=== PATIENT | female | born 1950 | race Caucasian/White ===

== ENCOUNTER 2020-05-08 08:35 | Day surgery (SDC) | payer MEDICARE, OTHER ==
[~2020-05-08] VITALS: Ht 157.5 cm; Wt 55.7 kg
[~2020-05-08 08:35] MED LIST: Amlodipine Bes2.5 MG PO; CALCIUM CIT 311 EACH PO; ESTRADIOL0.5 MG PO; LEVSOD100 PO; MULTIVITAMINS1 EAC3 PO
== END 2020-05-08 11:44 | disposition home or self-care (01) ==
LOC: ORSCSDS 08:35
PROVIDERS: Surgery
PROC: 0DJD8ZZ Inspection of Lower Intestinal Tract, Via Natural or Artificial Opening Endoscopic (ICD-10-PCS; principal; 2020-05-08 10:15)
DX: R19.5 Other fecal abnormalities (principal); I10 Essential (primary) hypertension; E03.9 Hypothyroidism, unspecified; R73.03 Prediabetes; F17.210 Nicotine dependence, cigarettes, uncomplicated
CPT/HCPCS: J2704; J7120

== ENCOUNTER 2021-04-10 07:14 | Day surgery (SDC) | payer MEDICARE, OTHER ==
[~2021-04-10] VITALS: Ht 157.5 cm; Wt 53.8 kg
--- NOTE | 2021-04-10 07:45 | NUR ---
04/10/21 0745 Joaquin Randolph CALL LIGHT WITHIN REACH. PLEDGETT AND TETRACAINE DROP PLACED AT 0738
== END 2021-04-10 09:21 | disposition home or self-care (01) ==
LOC: ORSCSDS 07:14
PROVIDERS: Ophthalmology
PROC: 08RJ3JZ Replacement of Right Lens with Synthetic Substitute, Percutaneous Approach (ICD-10-PCS; principal; 2021-04-10 08:30)
DX: H25.11 Age-related nuclear cataract, right eye (principal); I10 Essential (primary) hypertension; E03.9 Hypothyroidism, unspecified; Z79.899 Other long term (current) drug therapy
CPT/HCPCS: J2001; J2250; J3010; J3301; J7040; V2632

== ENCOUNTER 2021-12-18 11:59 | Day surgery (SDC) | payer MEDICARE, OTHER ==
[~2021-12-18] VITALS: Ht 157.5 cm; Wt 53.9 kg
== END 2021-12-18 15:26 | disposition home or self-care (01) ==
LOC: ORSCSDS 11:59
PROVIDERS: Surgery
PROC: 0DBL8ZX Excision of Transverse Colon, Via Natural or Artificial Opening Endoscopic, Diagnostic (ICD-10-PCS; principal; 2021-12-18 14:00)
DX: Z12.11 Encounter for screening for malignant neoplasm of colon (principal); D12.3 Benign neoplasm of transverse colon; K57.30 Diverticulosis of large intestine without perforation or abscess without bleeding; I10 Essential (primary) hypertension; E03.9 Hypothyroidism, unspecified; F43.10 Post-traumatic stress disorder, unspecified; Z79.899 Other long term (current) drug therapy; Z87.891 Personal history of nicotine dependence
CPT/HCPCS: 88305; J2704; J7120

== ENCOUNTER 2023-09-02 11:42 | Day surgery (SDC) | payer MEDICARE, OTHER ==
[~2023-09-02] VITALS: Ht 157.5 cm; Wt 55.8 kg
[~2023-09-02 11:42] MED LIST changes: +AMLO5 PO; -Amlodipine Bes2.5 MG PO; +Balanced Salt Epinephrine Irrigation Solution 500 mL IR SCH; -CALCIUM CIT 311 EACH PO; +CALCIUM PO; -LEVSOD100 PO; +Lidocaine HCl/Pf 1% 5 ML VIAL XX SCH; +MAGNESIUM PO; +MULTIPLE VITAM1 EACH PO; -MULTIVITAMINS1 EAC3 PO; +Moxifloxacin HCL 0.5 MG/0.1 ML 0.4MLSYR LEFTEYE SCH; +NS 500 ML IV ONE; +PHENYLEPHRINE\\TROPICAMIDE\\TETRACAINE OPHTHALMIC DILATING SOLN LEFTEYE PRN; +Povidone-Iodine 450 DROP/30 ML Solution LEFTEYE SCH; +Povidone-Iodine 450 DROP/30 ML Solution ONE; +RED YEAST RICE PO; +SYNTHROID50 MC1; +Triamcinolone Inj Susp 40 MG / ML 1ML Vial INJ SCH; +Triamcinolone Inj Susp 40 MG / ML 1ML Vial ONE; +UBID10 PO; +VITAMIN D3 PO
[2023-09-02] MEDS ORDERED: NS 500 ML IV ONE (11:56)
[2023-09-02] MEDS ORDERED: FentaNYL Citrate 50 MCG/ML 2 ML Injection ONE (12:21)
[2023-09-02] MEDS ORDERED: Midazolam HCl 1MG / ML 2ML Vial ONE (12:21)
[2023-09-02] MEDS ORDERED: Tetracaine HCl 0.5% Opth Soln 15 ml XX ONE (12:43)
[2023-09-02 13:19] VITALS: BP 140/74
== END 2023-09-02 13:35 | disposition home or self-care (01) ==
LOC: ORSCSDS 11:42
PROVIDERS: Ophthalmology
PROC: 08RK3JZ Replacement of Left Lens with Synthetic Substitute, Percutaneous Approach (ICD-10-PCS; principal; 2023-09-02 13:00)
DX: H25.12 Age-related nuclear cataract, left eye (principal); Z96.1 Presence of intraocular lens; I10 Essential (primary) hypertension; F41.9 Anxiety disorder, unspecified; E03.9 Hypothyroidism, unspecified; Z87.891 Personal history of nicotine dependence; K21.9 Gastro-esophageal reflux disease without esophagitis; Z79.899 Other long term (current) drug therapy
CPT/HCPCS: J2250; J3010; J3301; J7040; V2632